=== PATIENT | female | born 1985 | race Caucasian/White ===

== ENCOUNTER → 2019-01-12 | Outpatient (CLI) | payer OTHER ==
[~2019-01-12] MED LIST: LEVFLO500 PO; OXYACE5T PO; OXYC1L PO; PROM25 PO
[2019-01-12 18:25] LABS: Percent Saturation 23.2 % (15.0-50.0)
[2019-01-12 19:08] LABS: Free Thyroxine 1.01 ng/dL (0.70-1.60); Thyroid Stimulating Hormone 6.47 uIU/mL (0.360-4.800); Triiodothyronine, Free 2.64 pg/mL (2.18-3.98)
== END | disposition home or self-care (01) ==
LOC: LAB SHORT 16:27 → LAB 16:27
PROVIDERS: Hospitalist
DX: E03.9 Hypothyroidism, unspecified (principal); E55.9 Vitamin D deficiency, unspecified; F41.9 Anxiety disorder, unspecified; R53.83 Other fatigue
CPT/HCPCS: 82306; 82533; 83540; 83550; 84439; 84443; 84481

== ENCOUNTER → 2020-05-06 | Outpatient (CLI) | payer OTHER | END | disposition home or self-care (01) | LOC: LAB SHORT 15:27 → LAB EV 15:27 | DX: R43.2 Parageusia (principal); Z20.828 Contact with and (suspected) exposure to other viral communicable diseases | CPT/HCPCS: U0003 ==

== ENCOUNTER 2023-07-04 09:30 | Inpatient (IN) | payer BC ==
[~2023-07-04] VITALS: Ht 149.9 cm; Wt 76.8 kg
[2023-07-04] VITALS (21 sets, daily range): BP systolic 102–125; BP diastolic 66–87
[~2023-07-04 09:30] MED LIST changes: +CORTISOL MANAGER PO; +PROBIOTIC1 EA14 PO; +THYR60 PO
--- NOTE | 2023-07-04 10:20 | NUR ---
Ambulatory in Day Surgery History, Chart, Medications and Allergies reviewed before start of procedure. Pre-Op teaching done. Pt verbalizes understanding.
--- NOTE | 2023-07-04 19:25 | NUR ---
SHIFT SUMMARY PT POD 0 TOTAL ABD HYSTER. TRANSVERSE INCISION WITH MEDIPORE DRESSING C/D/I. PT HAS AIDEN PAD IN PLACE THAT IS C/D. TERRAZAS PATENT, DRAINING CLEAR YELLOW URINE. PAIN WELL MANAGED PER EMAR. TOLERATING PO WITH NO N/V, ADVANCED TO REGULAR DIET.
[2023-07-05 04:26] VITALS: BP 116/74
--- NOTE | 2023-07-05 04:43 | NUR ---
SHIFT SUMMARY POD1 TOTAL ABD HYSTER. SCANT VAGINAL BLEEDING NOTED. TRANSVERSE INCISION COVERED W/MEDIPORE DRESSING. SS DRAINAGE NOTED. VSS. PT SLEPT ON AND OFF T/O THE NIGHT. AMBULATED IN HALLS W/ BRIDGE ATTACHER. PT REPORTS PASSING FLATTUS AND BELCHING T/O THE NIGHT, ALSO REPORTS HER PAIN FEELS LIKE GAS PAIN RATHER THAN ABD PAIN. TERRAZAS REMAINS PATENT, DRAINING CLEAR LIGHT YELLOW URINE. PT MEDICATED FOR PAIN WITH SCHEDULED TORADOL AND PRN OXY, PT REPORTS THE TORADOL AND SIMETHICONE APPEARED TO HELP THE MOST. PT TOLLERATING PO INTAKE W/O N/V. PVERALL, NO ACUTE EVENTS NOTED.
[2023-07-05 05:09] LABS: BASOPHILS ABSOLUTE AUTO 0.02 K/mm3 (0.00-0.23); BASOPHILS PERCENT AUTO 0 % (0-2); EOSINOPHILS PERCENT AUTO 0 % (0-6); Hematocrit 37.5 % (33.0-51.0); Hemoglobin 12.4 g/dL (11.5-16.0); IMMATURE GRAN ABSOLUTE AUTO 0.07 K/mm3 (0.00-0.10); IMMATURE GRAN PERCENT AUTO 0 % (0-1); LYMPHOCYTES ABSOLUTE AUTO 1.33 K/mm3 (0.84-5.20); LYMPHOCYTES PERCENT AUTO 8 % (21-46); MONOCYTES ABSOLUTE AUTO 1.33 K/mm3 (0.16-1.47); MONOCYTES PERCENT AUTO 8 % (4-13); Mean Corpuscular HGB 30.8 pg (26.0-34.0); Mean Corpuscular HGB Conc 33.1 g/dL (31.5-36.5); Mean Corpuscular Volume 93 fL (80-100); Mean Platelet Volume 10.2 fL (9.1-12.4); NEUTROPHILS ABSOLUTE AUTO 13.83 K/mm3 (1.96-9.15); NEUTROPHILS PERCENT AUTO 84 % (41-73); Platelet Count 272 K/mm3 (150-400); RDW Coefficient Variation 12.4 % (11.7-14.2); RDW Standard Deviation 42.5 fL (35.1-46.3); Red Blood Cell Count 4.03 M/mm3 (3.80-5.20); White Blood Cell Count 16.58 K/mm3 (4.00-11.30)
[2023-07-05 07:06] VITALS: BP 120/77
[2023-07-05 14:27] VITALS: BP 128/77
--- NOTE | 2023-07-05 18:03 | NUR ---
SUMMARY: PT IS POD1 TOTAL OPEN HYSTERECTOMY. PT A/O, VSS. PT HAS DONE WELL TODAY, WALKED IN HALLS IS EATING AND VOIDING. INDEP IN ROOM. REPORTS GAS PAIN, GIVEN GAS-X AND NARCO PRN. SURGICAL SITE WNL, NO VAGINAL BLEEDING NOTED. PT REQUESTED A SHOWER TONIGHT AT 1700. DRESSING REMOVED FOR SHOWER, PT INSTRUCTED TO PAT SITE DRY. STERI STRIPS INTACT AFTER SHOWER, SITE WNL AND MEDIPORE DRESSING REPLACED OVER TOP. PLAN IS FOR DC TOMORROW, NO SAFETY CONCERNS.
[2023-07-05 20:04] VITALS: BP 129/75
--- NOTE | 2023-07-05 20:46 | NUR ---
AT BEDSIDE DR [place] TO BEDSIDE TO SEE PT. DISCUSSED POST-OP TREATMENT & ANSWERED ALL PT QUESTIONS. STATES PT IS DOING WELL. STATED SHE WILL PROCESS ORDERS FOR PT DISCHARGE IN AM.
[2023-07-06 04:00] VITALS: BP 115/79
--- NOTE | 2023-07-06 06:03 | NUR ---
SHIFT SUMMARY POD 2 TOTAL OPEN HYSTR. NO ACUTE CHANGES OVERNIGHT. VS WNL FOR PT, A&0 x4. SURGICAL SITE C/D/I c MEDIPORE, NO VAGINAL BLEEDING NOTED. TOLERATING ORALS. INDEPENDENT IN ROOM, AMBULATES IN HALLS c FWW. PT REPORTS MOST PAIN R/T GAS, MEDICATED PER EMAR c SIMETHICONE & NORCO. PT CLEARED FOR DISCHARGE LATER THIS MORNING. BED IN LOWEST POSITION, CALL LIGHT WITHIN REACH, WILL REPORT TO DAY RN.
[2023-07-06 07:50] VITALS: BP 114/72
--- NOTE | 2023-07-06 12:04 | NUR ---
PT AMBULATED DOWN THE HALLS THIS AM, TOLERATED WELL, DC INSTRUCTIONS GIVEN, VERBALIZED UNDERSTANDING.
== END 2023-07-06 13:27 | disposition home or self-care (01) | DRG 743 ==
LOC: SURS 09:30 → PRE IP 11:00 → SURS 13:43
PROVIDERS: ADMIT Obstetrics & Gynecology
PROC: 0UT60ZZ Resection of Left Fallopian Tube, Open Approach (ICD-10-PCS; 2023-07-04)
PROC: 0UT10ZZ Resection of Left Ovary, Open Approach (ICD-10-PCS; 2023-07-04)
PROC: 0UT90ZL Resection of Uterus, Supracervical, Open Approach (ICD-10-PCS; principal; 2023-07-04 11:00)
DX: N85.00 Endometrial hyperplasia, unspecified (principal); N92.1 Excessive and frequent menstruation with irregular cycle; N85.4 Malposition of uterus
CPT/HCPCS: 36415; 85025; 88307; 94760; A9270; J0690; J1100; J1170; J1885; J2250; J2405; J2704; J3010; J7120